=== PATIENT | female | born 1960 | race African-American/Black ===

== ENCOUNTER 2018-09-23 06:22 | Inpatient (IN) | payer MEDICAID ==
[~2018-09-23] VITALS: Ht 167.6 cm; Wt 79.8 kg
[~2018-09-23 06:22] MED LIST: RANI150T7 PO; SIMV20TA6 PO
[2018-09-23] MEDS ORDERED: ONDANSETRON HCL 4MG/2ML INJ IV STA (07:23)
[2018-09-23] MEDS ORDERED: MECLIZINE 25MG TABLET PO ONE (07:30)
[2018-09-23 08:15] LABS: HEMATOCRIT. 41.2 % (36.0-48.0); HEMOGLOBIN. 13.7 g/dL (12.0-16.0); LYMPHOCYTES % 32.1 % (20.0-50.0); MEAN CORPUSCULAR HEMOGLOBIN 29.9 pg (28.0-32.0); MEAN CORPUSCULAR VOLUME 90.1 fL (81.0-99.0); MONOCYTES % 10.5 % (2.0-8.0); NEUTROPHILS % 56.5 % (40.0-76.0); PLATELET 242 x1000/uL (130-400); RED BLOOD CELL COUNT 4.57 mill/uL (4.2-5.4); RED CELL DISTRIBUTION WIDTH 12.5 % (11.6-14.6)
[2018-09-23 08:16] LABS: BASOPHILS % 0.6 % (0.0-2.0); EOSINOPHILS % 0.3 % (0.0-5.0)
[2018-09-23 08:21] LABS: CHLORIDE 105 mEq/L (98-107)
[2018-09-23 08:23] LABS: INR 1.1; PARTIAL THROMBOPLASTIN TIME 28.7 sec (23.4-31.0); PROTHROMBIN TIME 10.6 sec (9.1-11.1)
[2018-09-23 08:25] LABS: ETHANOL BLOOD < 10 mg/dL
[2018-09-23 09:30] LABS: CLARITY URINE CLEAR (CLEAR); COLOR URINE YELLOW (YELLOW); KETONES URINE NEGATIVE (NEGATIVE); LEUKOCYTE ESTERASE URINE 1+ (NEGATIVE); NITRITE URINE NEGATIVE (NEGATIVE); OCCULT BLOOD URINE NEGATIVE (NEGATIVE); PH URINE 6.5 (4.5-8.0); PROTEIN URINE NEGATIVE (NEGATIVE)
[2018-09-23 10:31] LABS: *AMPHETAMINES SCREEN URINE NEGATIVE (NEGATIVE); *BARBITURATES SCREEN URINE NEGATIVE (NEGATIVE); *BENZODIAZEPINES SCREEN URINE NEGATIVE (NEGATIVE); *COCAINE SCREEN URINE NEGATIVE (NEGATIVE)
[2018-09-23 10:32] LABS: CANNABINOID URINE SCREEN NEGATIVE (NEGATIVE); METHADONE URINE SCREEN NEGATIVE (NEGATIVE); OPIATES URINE SCREEN NEGATIVE (NEGATIVE); PHENCYCLIDINE URINE SCREEN NEGATIVE (NEGATIVE)
[2018-09-23] MEDS ORDERED: CEFTRIAXONE 1 G PREMIX 50 ML IV ONE (10:45)
[2018-09-23 18:15] VITALS: BP 150/65
[2018-09-23 19:09] VITALS: BP 150/65
[2018-09-23] MEDS ORDERED: OMEP20CA10 PO (19:37)
[2018-09-23 20:30] VITALS: BP 140/69
[2018-09-23] MEDS ORDERED: SODIUM CHLORIDE 0.45% 1,000 ML IV ONE (20:30)
[2018-09-23] MEDS ORDERED: LORAZEPAM 2MG/ML CPJ IV PRN (20:30)
[2018-09-23] MEDS ORDERED: POTASSIUM CHLORIDE 10MEQ TABLET SR PO NR (20:44)
[2018-09-23] MEDS: LOSARTAN POTASSIUM 50 MG TABLET PO SCH (21:27)
[2018-09-24] VITALS (8 sets, daily range): BP systolic 115–136; BP diastolic 57–68
[2018-09-24 07:23] LABS: BASOPHILS % 0.3 % (0.0-2.0); EOSINOPHILS % 0.6 % (0.0-5.0); HEMATOCRIT. 43.6 % (36.0-48.0); HEMOGLOBIN. 14.5 g/dL (12.0-16.0); LYMPHOCYTES % 42.4 % (20.0-50.0); MEAN CORPUSCULAR HEMOGLOBIN 30.1 pg (28.0-32.0); MEAN CORPUSCULAR VOLUME 90.3 fL (81.0-99.0); MEAN PLATELET VOLUME 9.3 fl (7.4-10.4); NEUTROPHILS % 43.7 % (40.0-76.0); PLATELET 277 x1000/uL (130-400); RED BLOOD CELL COUNT 4.82 mill/uL (4.2-5.4); RED CELL DISTRIBUTION WIDTH 12.6 % (11.6-14.6)
[2018-09-24] MEDS ORDERED: PANTOPRAZOLE 40MG DR TABLET PO SCH ×2 (07:40→14:33)
[2018-09-24] MEDS: LOSARTAN POTASSIUM 50 MG TABLET PO SCH (08:28)
[2018-09-24 08:45] LABS: CHLORIDE 105 mEq/L (98-107)
[2018-09-24 09:00] LABS: LDL CHOLESTEROL 136 mg/dL (5-100)
[2018-09-24 09:01] LABS: HDL CHOLESTEROL 64 mg/dL (40-59)
[2018-09-24] MEDS ORDERED: MECLIZINE 25MG TABLET PO PRN (10:45)
[2018-09-24] MEDS ORDERED: EZETIMIBE 10MG TABLET PO SCH (13:00)
[2018-09-24] MEDS ORDERED: ATORVASTATIN CALCIUM 10MG TABLET PO SCH ×2 (21:00)
== END 2018-09-24 18:30 | disposition home or self-care (01) | DRG 111 ==
LOC: ER 09:02 → 7WST 11:03 → EDBEDREQ 11:10 → EDBEDREQTM 11:10 → ENRESERV 16:26
PROVIDERS: ADMIT Internal Medicine; ATTEND Internal Medicine
DX: H81.10 Benign paroxysmal vertigo, unspecified ear (principal); G90.8 Other disorders of autonomic nervous system; E78.00 Pure hypercholesterolemia, unspecified; I10 Essential (primary) hypertension; K21.9 Gastro-esophageal reflux disease without esophagitis; E78.5 Hyperlipidemia, unspecified; E86.0 Dehydration; Y90.0 Blood alcohol level of less than 20 mg/100 ml; Z90.710 Acquired absence of both cervix and uterus; Z71.41 Alcohol abuse counseling and surveillance of alcoholic; Z72.89 Other problems related to lifestyle; Z88.8 Allergy status to other drugs, medicaments and biological substances; Z79.899 Other long term (current) drug therapy
CPT/HCPCS: 36415; 71045; 80061; 80305; 83880; 84443; 84484; 93005; 93306; 93880; 97161; 99285; G0482; J0696; J2405; J8597

== ENCOUNTER 2019-03-08 23:17 | Emergency (ER) | payer MEDICAID ==
[~2019-03-08] VITALS: Ht 167.6 cm; Wt 79.0 kg
[~2019-03-08 23:17] MED LIST changes: +OMEP20CA10 PO
[2019-03-09 01:16] LABS: CLARITY URINE CLEAR (CLEAR); COLOR URINE DARK YELLOW (YELLOW); KETONES URINE TRACE (NEGATIVE); LEUKOCYTE ESTERASE URINE 1+ (NEGATIVE); NITRITE URINE POSITIVE (NEGATIVE); OCCULT BLOOD URINE NEGATIVE (NEGATIVE); PH URINE 5.5 (4.5-8.0); PROTEIN URINE NEGATIVE (NEGATIVE); SPECIFIC GRAVITY URINE 1.018 (1.005-1.030)
[2019-03-09] MEDS ORDERED: CEFTRIAXONE SODIUM 250 MG/VIAL IM ONE (02:00)
[2019-03-09] MEDS ORDERED: AZITHROMYCIN 500 MG TABLET PO ONE (02:00)
[2019-03-09] MEDS ORDERED: LIDOCAINE HCL 1% 20ML VIAL (Pyxis) INJ INFIL ONE (02:00)
[2019-03-09 02:30] VITALS: BP 156/73
[2019-03-14 06:17] LABS: CHLAMYDIA TRACHOMATIS NAA Negative (Negative); NEISSERIA GONORRHOEAE NAA Negative (Negative)
== END 2019-03-09 02:30 | disposition home or self-care (01) ==
LOC: ER 23:17
DX: N39.0 Urinary tract infection, site not specified (principal); E78.00 Pure hypercholesterolemia, unspecified; K58.9 Irritable bowel syndrome, unspecified; Z90.710 Acquired absence of both cervix and uterus
CPT/HCPCS: 81003; 87077; 87086; 87186; 87491; 87591; 96372; 99283; J0696; J3490

== ENCOUNTER 2019-03-23 10:13 | Emergency (ER) | payer MEDICAID ==
[~2019-03-23] VITALS: Ht 167.6 cm; Wt 79.0 kg
[2019-03-23 11:10] LABS: CLARITY URINE CLEAR (CLEAR); COLOR URINE DARK YELLOW (YELLOW); KETONES URINE NEGATIVE (NEGATIVE); LEUKOCYTE ESTERASE URINE NEGATIVE (NEGATIVE); NITRITE URINE POSITIVE (NEGATIVE); OCCULT BLOOD URINE NEGATIVE (NEGATIVE); PROTEIN URINE NEGATIVE (NEGATIVE); SPECIFIC GRAVITY URINE 1.016 (1.005-1.030); UROBILINOGEN URINE 0.2 E.U./dL (0.2-1.0)
[2019-03-23] MEDS ORDERED: KETOROLAC 30MG/ML VIAL IV STA (14:58)
[2019-03-23] MEDS ORDERED: SODIUM CHLORIDE 0.9% 1,000 ML IV ONE (14:58)
[2019-03-23] MEDS ORDERED: ONDANSETRON HCL 4MG/2ML INJ IV STA (14:58)
[2019-03-23 15:00] VITALS: BP 139/76
[2019-03-23] MEDS ORDERED: CEFAZOLIN 1000MG PREMIX 50 ML IV ONE (15:15)
[2019-03-23 15:39] LABS: BASOPHILS % 1.1 % (0.0-2.0); EOSINOPHILS % 2.9 % (0.0-5.0); HEMATOCRIT. 44.3 % (36.0-48.0); HEMOGLOBIN. 14.9 g/dL (12.0-16.0); MEAN CORPUSCULAR HEMOGLOBIN 29.9 pg (28.0-32.0); MEAN PLATELET VOLUME 8.5 fl (7.4-10.4); MONOCYTES % 10.1 % (2.0-8.0); NEUTROPHILS % 41.9 % (40.0-76.0); PLATELET 344 x1000/uL (130-400); RED BLOOD CELL COUNT 4.97 mill/uL (4.2-5.4); RED CELL DISTRIBUTION WIDTH 12.5 % (11.6-14.6)
[2019-03-23 15:43] LABS: CHLORIDE 106 mEq/L (98-107)
[2019-03-23] MEDS ORDERED: POTASSIUM CHLORIDE 20MEQ TABLET SR PO ONE (16:15)
[2019-03-26 04:21] LABS: CHLAMYDIA TRACHOMATIS NAA Negative (Negative); NEISSERIA GONORRHOEAE NAA Negative (Negative)
== END 2019-03-23 17:00 | disposition home or self-care (01) ==
LOC: ER 10:13
DX: N10 Acute pyelonephritis (principal); N30.00 Acute cystitis without hematuria; E78.00 Pure hypercholesterolemia, unspecified; K58.9 Irritable bowel syndrome, unspecified; Z90.710 Acquired absence of both cervix and uterus
CPT/HCPCS: 36415; 74176; 80053; 81003; 81025; 85025; 87086; 87491; 87591; 96365; 96375; 99284; J0690; J1885; J2405; J7030; Z7610

== ENCOUNTER 2019-10-11 04:33 | Emergency (ER) | payer MEDICAID ==
[~2019-10-11] VITALS: Ht 170.2 cm; Wt 76.0 kg
[~2019-10-11 04:33] MED LIST changes: -OMEP20CA10 PO; +OMEP20CA5 PO
[2019-10-11] MEDS ORDERED: SODIUM CHLORIDE 0.9% 1,000 ML IV ONE (06:06)
[2019-10-11 06:21] LABS: BASOPHILS % 0.4 % (0.0-2.0); EOSINOPHILS % 0.3 % (0.0-5.0); HEMATOCRIT. 41.8 % (36.0-48.0); LYMPHOCYTES % 33.2 % (20.0-50.0); MEAN CORPUSCULAR HEMOGLOBIN 29.9 pg (28.0-32.0); MEAN PLATELET VOLUME 8.9 fl (7.4-10.4); MONOCYTES % 9.1 % (2.0-8.0); PLATELET 298 x1000/uL (130-400); RED CELL DISTRIBUTION WIDTH 12.6 % (11.6-14.6)
[2019-10-11 06:27] LABS: CHLORIDE 108 mEq/L (98-107)
[2019-10-11 06:29] LABS: PROTHROMBIN TIME 10.3 sec (9.6-11.0)
[2019-10-11 06:30] LABS: CLARITY URINE CLEAR (CLEAR); COLOR URINE YELLOW (YELLOW); KETONES URINE TRACE (NEGATIVE); LEUKOCYTE ESTERASE URINE NEGATIVE (NEGATIVE); NITRITE URINE NEGATIVE (NEGATIVE); OCCULT BLOOD URINE NEGATIVE (NEGATIVE); PROTEIN URINE NEGATIVE (NEGATIVE); SPECIFIC GRAVITY URINE 1.016 (1.005-1.030); UROBILINOGEN URINE 0.2 E.U./dL (0.2-1.0)
[2019-10-11] MEDS ORDERED: FAMOTIDINE 20MG/2ML VIAL IV ONE (06:30)
[2019-10-11 10:14] VITALS: BP 150/76
== END 2019-10-11 10:19 | disposition home or self-care (01) ==
LOC: ER 04:33
DX: R10.13 Epigastric pain (principal); R19.7 Diarrhea, unspecified; K21.9 Gastro-esophageal reflux disease without esophagitis; Z90.710 Acquired absence of both cervix and uterus; Z79.899 Other long term (current) drug therapy
CPT/HCPCS: 36415; 71045; 74176; 80053; 81003; 83690; 85025; 85610; 96361; 96374; 99284; J3490; J7030

== ENCOUNTER 2021-06-25 10:13 | Emergency (ER) | payer MEDICAID ==
[~2021-06-25] VITALS: Ht 167.6 cm; Wt 79.0 kg
[~2021-06-25 10:13] MED LIST changes: +OMEP20CA14 PO; -OMEP20CA5 PO; +SIMV-43 PO; -SIMV20TA6 PO
[2021-06-25] MEDS ORDERED: SODIUM CHLORIDE 0.9% 1,000 ML IV ONE (11:15)
[2021-06-25 13:29] LABS: BASOPHILS % 0.5 % (0.0-2.0); EOSINOPHILS % 0.2 % (0.0-5.0); HEMOGLOBIN. 13.9 g/dL (12.0-16.0); LYMPHOCYTES % 54.4 % (20.0-50.0); MEAN CORPUSCULAR HEMOGLOBIN 30.6 pg (28.0-32.0); MEAN CORPUSCULAR VOLUME 88.1 fL (81.0-99.0); MONOCYTES % 9.8 % (2.0-8.0); NEUTROPHILS % 35.1 % (40.0-76.0); PLATELET 251 x1000/uL (130-400); RED BLOOD CELL COUNT 4.55 mill/uL (4.2-5.4); RED CELL DISTRIBUTION WIDTH 12.7 % (11.6-14.6)
[2021-06-25 13:36] LABS: CHLORIDE 109 mEq/L (98-107)
[2021-06-25 13:40] LABS: CLARITY URINE CLEAR (CLEAR); COLOR URINE YELLOW (YELLOW); KETONES URINE NEGATIVE (NEGATIVE); LEUKOCYTE ESTERASE URINE TRACE (NEGATIVE); NITRITE URINE NEGATIVE (NEGATIVE); OCCULT BLOOD URINE NEGATIVE (NEGATIVE); PH URINE 7.5 (4.5-8.0); PROTEIN URINE NEGATIVE (NEGATIVE); SPECIFIC GRAVITY URINE 1.013 (1.005-1.030)
[2021-06-25 17:01] VITALS: BP 102/57
== END 2021-06-25 17:02 | disposition home or self-care (01) ==
LOC: ER 10:13
DX: R20.2 Paresthesia of skin (principal); M54.31 Sciatica, right side; K21.9 Gastro-esophageal reflux disease without esophagitis; E78.00 Pure hypercholesterolemia, unspecified; Z98.890 Other specified postprocedural states; Z90.710 Acquired absence of both cervix and uterus
CPT/HCPCS: 36415; 70450; 80053; 81003; 83735; 84484; 85025; 93971; 99285; J7030